=== PATIENT | female | born 1965 | race Caucasian/White ===

== ENCOUNTER → 2020-04-20 11:19 | Outpatient (BNVA) | payer MEDICARE, SELFPAY | PROVIDERS: PCP Specialist; Referring Provider Specialist; Visit Provider Urology | DX: Z76.89 Persons encountering health services in other specified circumstances (principal) ==

== ENCOUNTER → 2020-06-08 13:53 | Outpatient (BNVA) | payer MEDICARE, MEDICAID, SELFPAY | PROVIDERS: PCP Specialist; Visit Provider Urology | DX: Z43.1 Encounter for attention to gastrostomy (principal) | CPT/HCPCS: 99202 ==

== ENCOUNTER 2020-07-12 07:16 | Day surgery (SDC) | payer MEDICARE, MEDICAID, SELFPAY ==
[2020-07-12 07:26] VITALS: BMI 20.5
[2020-07-12 07:48] VITALS: BP 115/73; PULSE 64; RESP 18; TEMP 36.5; O2SAT 99
--- NOTE | 2020-07-12 09:52 | MHC.SHP ---
Pre-Procedural Eval Section A The patient is an INPATIENT: No Changes since office visit: No Cold of Flu in the past 2 weeks, No New Medical Problems, No Changes in Medication and No Patient answered all questions The History & Physical has been completed within 30 days and I have reviewed it.: Yes Section B Chief Complaint: dysfunction of bladder Allergies: Allergies Allergy/AdvReac Type Severity Reaction Status Date / Time No Known Allergies Allergy Verified 07/08/20 15:10 Plan I have reviewed the history and physical and performed a pertinent physical examination on my patient. No changes have occurred unless specified. Cystoscopy with suprapubic tube placement
--- NOTE | 2020-07-12 10:43 | PC.NURSE ---
deep suctioned through trach x3. for small amount
--- NOTE | 2020-07-12 10:49 | HO.ANESPROP2 ---
[facility] Past Medical History Medical History Arthritis of right shoulder region Contracture of both wrist joints CVA (cerebral vascular accident) Elevated cholesterol Essential tremor Gastrostomy tube in place GERD (gastroesophageal reflux disease) History of gastrostomy tube placement HTN (hypertension) Hx of subarachnoid hemorrhage Neurogenic bladder Oxygen dependent Psoriasis Tracheostomy in place Urinary retention Surgical History Surgical History History of brain surgery Hx of tracheostomy Social History Social History Smoking Status: Unknown if ever smoked Use of substances other than those prescribed or required for medical reasons: Unable to respond Advance Directives: Yes Advance Directives Information Provided: No Advance Directives on File: No Advance Directives Date on File: 07/12/20 Meds Allergies Allergy/AdvReac Type Severity Reaction Status Date / Time No Known Allergies Allergy Verified 07/08/20 15:10 Home Medications Medication Instructions Recorded Confirmed Type acetaminophen 325 mg capsule 650 mg FEEDING TUBE QID PRN 06/08/20 07/08/20 History amlodipine 10 mg tablet 10 mg FEEDING TUBE DAILY 06/08/20 07/08/20 History ascorbic acid (vitamin C) 500 mg 500 mg FEEDING TUBE BID 06/08/20 07/08/20 History oral powder packet atorvastatin 20 mg tablet 20 mg FEEDING TUBE BEDTIME 06/08/20 07/08/20 History bisacodyl 10 mg/30 mL enema 5 mg [place] DAILY PRN 06/08/20 07/08/20 History chlorhexidine gluconate 0.12 % 15 ml BUCCAL BID 06/08/20 07/08/20 History mouthwash glycopyrrolate 2 mg tablet 2 mg FEEDING TUBE TID 06/08/20 07/08/20 History hydrochlorothiazide 25 mg tablet 25 mg FEEDING TUBE DAILY 06/08/20 07/08/20 History lidocaine 4 % topical patch 1 patch TOPICAL DAILY PRN 06/08/20 07/08/20 History loratadine 10 mg tablet 10 mg FEEDING TUBE DAILY 06/08/20 07/08/20 History melatonin 3 mg tablet 1.5 mg FEEDING TUBE BEDTIME 06/08/20 07/08/20 History metoprolol succinate 50 mg 50 mg PO TID 06/08/20 History tablet,extended release 24 hr mineral oil 118 ml [place] DAILY PRN 06/08/20 History polyethylene glycol 3350 8.5 gram 8.5 g FEEDING TUBE DIRECTED PRN 06/08/20 07/08/20 History oral powder packet potassium chloride 20 mEq/15 mL 20 meq FEEDING TUBE BID 06/08/20 07/08/20 History oral liquid sertraline 50 mg tablet 50 mg FEEDING TUBE DAILY 06/08/20 07/08/20 History trazodone 50 mg tablet 25 mg FEEDING TUBE DAILY 06/08/20 07/08/20 History acetaminophen 650 mg [place] Q4H PRN 07/08/20 07/08/20 History acetylcysteine 1 ml INHALATION Q6H 07/08/20 07/08/20 History albuterol sulfate 2.5 mg INHALATION Q4H PRN 07/08/20 07/08/20 History carboxymethylcellulose sodium 1 drp OPHTHALMIC (EYE) QID 07/08/20 07/08/20 History cholecalciferol (vitamin D3) 1,250 mcg FEEDING TUBE QMONTH 07/08/20 07/08/20 History cranberry fruit 450 mg FEEDING TUBE DAILY 07/08/20 07/08/20 History loperamide 2 mg PO Q4H PRN 07/08/20 07/08/20 History lorazepam 0.5 mg PO TID PRN 07/08/20 07/08/20 History omeprazole magnesium 40 mg FEEDING TUBE DAILY 07/08/20 07/08/20 History ondansetron 4 mg FEEDING TUBE Q4-6H PRN 07/08/20 07/08/20 History sennosides-docusate sodium [Senna 1 tab-cap PO BEDTIME 07/08/20 History with Docusate Sodium] sodium phosphates [Fleet Enema] ml [place] 07/08/20 History Exam Exam Date and Time: July 12, 2020 1049 Height,Weight and Vital Signs: Height 5 ft 2 in Weight 51 kg Last Vital Signs Temp 97.7 F 07/12/20 07:48 Pulse 64 07/12/20 07:48 Resp 18 07/12/20 07:48 BP 115/73 07/12/20 07:48 Pulse Ox 99 07/12/20 07:48 Airway Mallampati Class: II Neck ROM: Limited Assessment and Plan Assessment Anesthesia Assessment: Anesthesia Plan Discussed and Chart Reviewed Final Anesthetic Review NPO: Yes ASA Class: III Final Preanesthetic Review: No Changes in Pt Med Stat, Meds/Allgs Chart Reviewed, Consent Obtained/Reviewed, Anes Risks/Benef Reviewed and DNR Form (If Appl.) Patient Risk: Intermediate Procedure Risk: Low Assessment/Block/Sedation in SS: Assess/Block/Sedation-SS Anesthetic Plan Anesthetic Plan: MAC: Disposition: Standard PACU
[2020-07-12] MEDS: levoFLOXacin/D5W 500 MG/100 ML PIGGYBACK 100 MG IV (11:11)
[2020-07-12 11:40] VITALS: BP 96/66; PULSE 66; RESP 16; TEMP 36.3; O2SAT 95
--- NOTE | 2020-07-12 11:41 | PM.OP ---
Brief Operative Note Date of Service: 07/12/20 Pre-op diagnosis: recurrent uti Post-op diagnosis: same Procedure: cystoscopy, suprapubic placement Surgeon: Tim Bee MD Anesthesia: local Estimated blood loss (mL): 0 Pathology: none sent Condition: stable Disposition: same day
--- NOTE | 2020-07-12 11:42 | W.PM.OPN ---
Operative Note Operative Note Date of Service: 07/12/20 Narrative: PreOperative Diagnosis: Neurogenic bladder, recurrent UTI Post Operative Diagnosis: Neurogenic bladder, recurrent UTI Procedure: 1. Cystoscopy 2. Suprapubic tube placement Surgeon: Dr Tim Bee Anesthesia: Sedation Indications for procedure: 54-year-old female. Two years status post stroke. Recurring UTI neurogenic bladder. Discussed with family for suprapubic tube to minimize recurring UTI. They are aware of risks and benefits particularly related to hollow viscus puncture. Procedure: After informed consent was verified the patient was brought to the operating room and placed in a supine position. anesthesia was administered per protocol. The patient was prepped and draped in sterile fashion. Safety pause time-out was performed. Antibiotics being given. Twenty-two Turkish cystoscope inserted per urethra. No abnormality noted in the bladder. Bladder filled. Two fingerbreadths above the symphysis pubis at the hairline find spinal needle was placed in seem to have easy entry into the bladder by the bubble. The finding needle was removed. Local anesthetic was infiltrated that side. A 15 blade was used to make a 1 cm incision. A suprapubic trocar was then placed into the bladder. This was done under direct visualization. A 16 Turkish Hoskins catheter was able to be inserted into sheath. 10 cc placed with good inflation of the bladder. The sheath was removed. Final dressing placed. She tolerated procedure well and was transferred in stable condition to the recovery area Pathology: None Drains: Sixteen Turkish Hoskins catheter
[2020-07-12 11:55] VITALS: BP 117/72; PULSE 62; RESP 16; O2SAT 98
[2020-07-12 12:06] VITALS: BP 128/72; PULSE 60; RESP 18; TEMP 36.3; O2SAT 99
== END 2020-07-12 13:05 | disposition home or self-care (01) ==
PROVIDERS: PCP Specialist; Visit Provider Urology
PROC: (CPT 51102; principal; 2020-07-12 09:20)
DX: N31.9 Neuromuscular dysfunction of bladder, unspecified (principal); N39.0 Urinary tract infection, site not specified; I10 Essential (primary) hypertension; G25.0 Essential tremor; Z86.73 Personal history of transient ischemic attack (TIA), and cerebral infarction without residual deficits; Z99.81 Dependence on supplemental oxygen; Z79.899 Other long term (current) drug therapy; Z93.1 Gastrostomy status; Z93.0 Tracheostomy status; Z66 Do not resuscitate
CPT/HCPCS: 51102; J1956; J3010

== ENCOUNTER → 2020-08-10 08:32 | Outpatient (BNVA) | payer MEDICARE, MEDICAID, SELFPAY | PROVIDERS: PCP Specialist; Visit Provider Urology | DX: Z13.89 Encounter for screening for other disorder (principal) | CPT/HCPCS: 51705; 99212 ==

== ENCOUNTER → 2020-09-07 14:04 | Outpatient (BNVA) | payer MEDICARE, MEDICAID, SELFPAY | PROVIDERS: PCP Specialist; Visit Provider Urology | DX: Z13.89 Encounter for screening for other disorder (principal) | CPT/HCPCS: 51705; 99212 ==